=== PATIENT | male | born 1980 | race Caucasian/White ===

== ENCOUNTER 2017-09-12 10:00 | Emergency (ER) | payer OTHER ==
[~2017-09-12] VITALS: Ht 175.3 cm; Wt 78.3 kg
[2017-09-12 10:06] VITALS: TEMP 36.6; Ht 175.3 cm; Wt 78.3 kg
[2017-09-12] MEDS ORDERED: AMOX875T PO (11:46)
[2017-09-12 12:07] VITALS: BP 117/54; PULSE 63; O2SAT 98
--- NOTE | 2017-09-12 17:55 | EMERGENCY ROOM VISIT NOTE ---
ED Visit Note First contact with patient: 11:04 Chief Complaint: Dog bite. History of Present Illness: Mr. Martinez is a 37-year-old white male who ambulates into the ED complaining of multiple dog bites to the right forearm and hand and left index finger. 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 They began to fight and were grabbing at each other. He attempted to break up the dog fight and was bitten multiple times. This occurred approximately 1.5 hours prior to arrival at the hospital. Currently he is complaining of multiple superficial bites and wounds to the anterior and posterior aspect of the right forearm and 2 bites to the right hand one on the thumb and one on the index finger. There is a full-thickness wound on the anterior aspect of the midforearm also noted. He also has a superficial wound on the left index finger. He reports prior to arrival at the hospital he did wash these with water and placed a small amount of antibiotic ointment on each wound. Associated with his wounds he also reports he is having a throbbing and stinging pain to the area. He rates his discomfort 7/10. The pain is nonradiating. The pain worsens with palpation. He has not identified any alleviating factors related to the pain. He reports he has not taken medication for pain prior to arrival at the hospital. He denies associated symptoms with his wound including bilateral elbow pain, wrist pain, DIP/PIP and MCP joint pain. Extremity weakness/numbness/tingling. Review of Systems: As noted above in history of present illness. Past Medical History: Patient denies. Current Medications: Patient denies. Allergies to Medications: Patient denies. Social History: Patient is currently employed; he feels safe in his home environment; he denies tobacco use and admits to alcohol use. Tetanus Immunization Status: Patient reports 2014. Physical Examination: Vital Signs: Date Time Temp Pulse Resp B/P (MAP) Pulse Ox O2 Delivery O2 Flow Rate FiO2 09/12/17 10:06 36.6 92 17 124/70 99 Room Air GENERAL: 27-year-old male in mild to moderate distress due to pain, nontoxic- appearing, afebrile and hemodynamically stable. NEUROLOGICAL: Awake, alert and oriented to person, place and time. Answering questions appropriately and following commands. SKIN: Warm, dry and pink. Right Upper Extremity: As previously noted patient has multiple superficial wounds from the dog bites over the forearm and the hand. There was one specific wound that was full-thickness and it measured approximately 1 cm in length and was in the mid forearm area. No active bleeding. Wounds were examined and no foreign bodies were found. Additionally he had one wound on the left hand which was on the index finger this wound was superficial also. No active bleeding from any of his wounds. HEENT: Atraumatic and normocephalic. PERRL. Sclera white and conjunctiva pink. No drainage from naris. Oral cavity moist and pink. Pharynx is nonerythematous or edematous. Speech normal. No lymphadenopathy. Trachea midline. No jugular venous distention. RIGHT UPPER EXTREMITY: No gross bony deformity. Soft tissue injury is noted above. Full range of motion in flexion and extension of the elbow, pronation and supination of the forearm, flexion, extension and radial and ulnar deviation of the wrist in flexion and extension of all fingers at the MCP, PIP and DIP joints. Distal pulses are intact. Distal sensation to light touch is intact. Capillary refill was brisk. LEFT HAND: Superficial dog bite injury to the anterior aspect of the left index finger. No active bleeding. Full range of motion in flexion and extension of the MCP, PIP and DIP joint. Capillary refill is brisk. Finger was intact to light sensation to all dermatomes. ED Course: Patient is assessed as noted above. Patient's medication list was reviewed. Patient was offered pain medication and refused. Patient's wounds were cleansed with Betadine and irrigated with sterile saline. The full-thickness wound on the right forearm was approximated using Steri- Strips. A bacitracin dressing was placed on all wounds. Patient was educated about today's findings and instructed on his treatment plan ; he verbalized understanding and agreement with this plan. Clinical Impression: Dog bite injuries to the upper right and left extremities. Disposition: Patient discharged home in stable condition; prior to departure he was reassessed and subjectively he was feeling better and rated his discomfort 5 /10. Reported Plan: Wound care, comfort measures and signs of infection were discussed with the patient. Patient was prescribed Augmentin 875 mg 2 times a day for 7 days. Patient was encouraged to follow-up with his PCP or return to the ED for signs of infection, uncontrolled pain or any new/concerning symptoms.
== END 2017-09-12 12:13 | disposition home or self-care (01) ==
LOC: C.EDB 10:02 → C.EDD 12:13
DX: S51.851A Open bite of right forearm, initial encounter (principal); S61.451A Open bite of right hand, initial encounter; S61.251A Open bite of left index finger without damage to nail, initial encounter; W54.0XXA Bitten by dog, initial encounter